=== PATIENT | male | born 1965 | race Caucasian/White ===

== ENCOUNTER 2017-05-12 12:13 | Day surgery (SDC) | payer OTHER ==
[2017-05-02 09:03] VITALS: Ht 171.5 cm; Wt 70.5 kg
[~2017-05-12] VITALS: Ht 171.5 cm; Wt 70.5 kg
[~2017-05-12 12:13] MED LIST: CEPH500C2 PO; LAMININE PO; NXM/40 PO
--- NOTE | 2017-05-12 14:49 | History and Physical ---
History & Physical Date May 12, 2017. Chief Complaint Shell's and hx of polyps History of Present Illness The patient is a 51 year old male with complaints of need for EGD and colonoscopy Allergies Coded Allergies: Metronidazole (Verified Allergy, Intermediate, nausea and vomiting, ) Penicillins (Verified Allergy, Unknown, A CHILD, UNSURE?, 05/02/17) Home Medications Scheduled Cephalexin Monohydrate (Keflex), 500 MG PO QID Esomeprazole Magnesium (Nexium), 40 MG PO DAILY [Laminine], 1 CAP PO DAILY Physical Examination Skin: warm/dry, no rash Eyes: normal inspection, EOMI, sclerae normal Respiratory/Chest: lungs clear, normal breath sounds, no respiratory distress Cardiovascular: regular rate, rhythm, no edema, no murmur Abdomen / GI: normal bowel sounds, non tender Neurologic/Psych: no motor/sensory deficits, alert, normal reflexes, oriented x 3 Diagnosis Shell's and hx of polyps for EGD and colonoscopy ASA Classification: ASA Class III Plan of Treatment EGD and colonoscopy in OR
[2017-05-12] MEDS ORDERED: PROPOFOL IV EMULSION 10 MG/ML 20 ML VIAL IV ONE (16:11)
[2017-05-12] MEDS ORDERED: FENTANYL CITRATE INJ 50 MCG/1 ML 2 ML VIAL ONE (16:11)
[2017-05-12] MEDS ORDERED: LIDOCAINE HCL 2% 2 ML VIAL (20MG/ML) ONE (16:11)
[2017-05-12] MEDS ORDERED: DEXAMETHASONE SOD INJ 4 MG/ML VIAL ONE (16:11)
[2017-05-12] MEDS ORDERED: ONDANSETRON INJ 2 MG/ML 2 ML VIAL ONE (16:11)
[2017-05-12] MEDS ORDERED: MIDAZOLAM HCL 1 MG/ML 2ML VIAL ONE (16:11)
[2017-05-12] MEDS ORDERED: ROCURONIUM BROMIDE 10 MG/ML 5 ML VIAL IV ONE (16:38)
[2017-05-12] MEDS ORDERED: SUCCINYLCHOLINE CHLORIDE 20 MG/ML 10 ML VIAL IV ONE (16:38)
[2017-05-12] MEDS ORDERED: ATROPINE SULFATE 0.1 MG/ML 5ML SYR IV PRN (16:45)
[2017-05-12] MEDS ORDERED: EpHEDrine SULFATE INJ 50 MG/ML AMP IV PRN (16:45)
[2017-05-12] MEDS ORDERED: ONDANSETRON INJ 2 MG/ML 2 ML VIAL IV PRN (16:45)
--- NOTE | 2017-05-12 16:46 | Discharge Instructions ---
Endoscopy Patient Instructions Date / Procedure(s) Performed May 12, 2017. Colonoscopy, EGD Allergy Information Coded Allergies: Metronidazole (Verified Allergy, Intermediate, nausea and vomiting, ) Penicillins (Verified Allergy, Unknown, A CHILD, UNSURE?, 05/02/17) Discharge Date / Findings May 12, 2017. Shell's, diverticulitis Medication Instructions Restart Stopped Medication(s): begin Cipro 500 mg twice a day for 10 days Reported Home Medications Medications Dose Route/Sig Max Daily Dose Days Date Category Dose Instructions Nexium (Esomeprazole Magnesium) 40 Mg Capcr 40 Mg PO DAILY 05/02/17 Reported "DOES NOT ALWAYS TAKE" [Laminine] 1 Cap PO DAILY 05/02/17 Reported DIETARY SUPPLEMENT-CELL GROWTH Keflex (Cephalexin Monohydrate) 500 Mg Cap 500 Mg PO QID 05/02/17 Reported Provider Instructions Activity Restrictions - No exercising or heavy lifting for 24 hours. - Do not drink alcohol the day of the procedure. - Do not drive a car or operate machinery until the day after the procedure. - Do not make any important decisions or sign important papers in 24 hours after the procedure. Following Day: - Return to full activity which may include returning to work/school. Diet Start your diet with liquids and light foods (jello, soup, juice, toast). Then eat your usual diet if not nauseated. Treatment For Common After Affects For mild abdominal pain, bloating, or excessive gas: - Rest - Eat lightly - Lie on right side Follow-Up Information Follow-up with as scheduled Anesthesia Information What You Should Know You have had a procedure that required some medicine to reduce anxiety and discomfort. This treatment is called moderate sedation. After receiving the treatment, you may be sleepy, but you will be able to breathe on your own. The effects of the treatment may last for several hours. Follow these instructions along with Activity/Diet recommendations noted above: * Do NOT do anything where dizziness or clumsiness would be dangerous. * Rest quietly at home today, then you can be up and about tomorrow. * Have a responsible person stay with you the rest of today. * You may have had an I.V. today. If so, you may take the dressing off later today. Recommendations Call your doctor if: * Trouble breathing * Continuous vomiting for more than 24 hours * Temperature above 101 degrees * Severe abdominal pain or bloating * Pain not relieved by pain medicine ordered * There is increased drainage or redness from any incision * A large amount of rectal bleeding greater than 2-3 tablespoons. (If you had a polyp/s removed or have hemorrhoids, a small amount of blood - from the rectum is to be expected.) * You have any unanswered questions or concerns. IN THE EVENT OF A SERIOUS EMERGENCY, GO TO THE NEAREST EMERGENCY ROOM Your discharge instructions were prepared by provider Chandler Silva. Patient Instructions Signature Page Hussein Keen Patient (or Guardian) Signature/Date: I have read and understand the instructions given to me by my caregivers. Caregiver/RN/Doctor Signature/Date: The above-named patient and/or guardian has received patient instructions on this date. + Original Patient Signature Page (only) stays with chart. Please make copy for patient.
--- NOTE | 2017-05-12 16:49 | GI REPORT ---
Procedure Date: 05/12/2017 4:21 PM Procedure: Upper GI endoscopy Indications: Follow-up of Shell's esophagus Medicines: General Anesthesia Complications: No immediate complications. Estimated Blood Loss: Estimated blood loss was minimal. Procedure: Pre-Anesthesia Assessment: - Prior to the procedure, a History and Physical was performed, and patient medications, allergies and sensitivities were reviewed. The patient's tolerance of previous anesthesia was reviewed. - The risks and benefits of the procedure and the sedation options and risks were discussed with the patient. All questions were answered and informed consent was obtained. After obtaining informed consent, the endoscope was passed under direct vision. Throughout the procedure, the patient's blood pressure, pulse, and oxygen saturations were monitored continuously. The On-site loaner was introduced through the mouth, and advanced to the second part of duodenum. The upper GI endoscopy was accomplished without difficulty. The patient tolerated the procedure well. 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 The maximum longitudinal extent of these mucosal changes was 20 cm in length. Mucosa was biopsied with a cold forceps for histology. Estimated blood loss was minimal. The entire examined stomach was normal. The examined duodenum was normal. 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 Biopsied. - Normal stomach. - Normal examined duodenum. Recommendation: - Discharge patient to home (ambulatory). - Continue present medications. - Await pathology results. - Return to primary care physician SANDRA. Chandler Silva M.D. Chandler Silva MD 05/12/2017 4:49:27 PM This report has been signed electronically. Note Initiated On: 05/12/2017 4:21 PM I attest to the content of the Intraoperative Record and orders documented therein, exceptions below
--- NOTE | 2017-05-12 16:53 | GI REPORT ---
Procedure Date: 05/12/2017 4:21 PM Procedure: Colonoscopy Indications: Abdominal pain in the left lower quadrant, Personal history of colonic polyps Medicines: General Anesthesia Complications: No immediate complications. Estimated Blood Loss: Estimated blood loss: none. Procedure: Pre-Anesthesia Assessment: - Prior to the procedure, a History and Physical was performed, and patient medications, allergies and sensitivities were reviewed. The patient's tolerance of previous anesthesia was reviewed. - The risks and benefits of the procedure and the sedation options and risks were discussed with the patient. All questions were answered and informed consent was obtained. - The risks and benefits of the procedure and the sedation options and risks were discussed with the patient. All questions were answered and informed consent was obtained. After I obtained informed consent, the scope was passed under direct vision. Throughout the procedure, the patient's blood pressure, pulse, and oxygen saturations were monitored continuously. The scope was introduced through the anus and advanced to the cecum, identified by appendiceal orifice and ileocecal valve. The colonoscopy was performed without difficulty. The patient tolerated the procedure well. The quality of the bowel preparation was good. Findings: Localized moderate inflammation characterized by erythema and mucus was found in the sigmoid colon. Impression: - Localized moderate inflammation was found in the sigmoid colon. - No specimens collected. Recommendation: - Discharge patient to home (ambulatory). - Cipro (ciprofloxacin) 500 mg PO BID for 10 days. - Return to primary care physician PRN. Chandler Silva M.D. Chandler Silva MD 05/12/2017 4:53:03 PM This report has been signed electronically. Note Initiated On: 05/12/2017 4:21 PM I attest to the content of the Intraoperative Record and orders documented therein, exceptions below
--- NOTE | 2017-05-12 17:18 | Anesthesiology Progress Note ---
Anesthesia Post Op Note Date & Time May 12, 2017 at 17:18 Vital Signs Pain Intensity: 0 Vital Signs Past 12 Hours Date Time Temp Pulse Resp B/P (MAP) Pulse Ox O2 Delivery O2 Flow Rate FiO2 05/12/17 17:09 76 17 05/12/17 17:09 78 17 96 05/12/17 17:05 112/75 05/12/17 17:04 78 17 05/12/17 17:04 77 17 99 05/12/17 17:00 114/74 05/12/17 17:00 113/82 05/12/17 16:59 36.7 84 11 113/82 99 Oxymask 10 05/12/17 16:59 83 17 99 05/12/17 16:59 82 17 05/12/17 13:06 36.7 77 20 139/91 (107) 99 Room Air Notes Mental Status: alert / awake / arousable, participated in evaluation Pt Amnestic to Procedure: Yes Nausea / Vomiting: adequately controlled Pain: adequately controlled Airway Patency, RR, SpO2: stable & adequate BP & HR: stable & adequate Hydration State: stable & adequate Anesthetic Complications: no major complications apparent
[2017-05-12 17:40] VITALS: BP 106/69; PULSE 85; TEMP 36.5; O2SAT 93
[2017-05-12 18:10] VITALS: BP 112/68; PULSE 76; O2SAT 95
[2017-05-12 18:35] VITALS: BP 105/74; PULSE 85; TEMP 36.4; O2SAT 97
== END 2017-05-12 18:40 | disposition home or self-care (01) ==
LOC: C.GI 12:13
PROVIDERS: ATTEND Internal Medicine Gastroenterology
DX: R10.32 Left lower quadrant pain (principal); Z09 Encounter for follow-up examination after completed treatment for conditions other than malignant neoplasm; Z88.0 Allergy status to penicillin; Z86.010 Personal history of colon polyps